=== PATIENT | male | born 2000 | race Caucasian/White ===

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

== ENCOUNTER 2023-04-06 19:28 | Emergency (ER) | payer OTHER, SELFPAY ==
[2023-04-06 19:35] VITALS: BP 142/77; PULSE 88; RESP 16; TEMP 36.8; O2SAT 100
--- NOTE | 2023-04-06 19:47 | ED.SKABFB ---
HPI - Skin/Abscess/Foreign Bdy General Chief complaint: Skin/Abscess/Foreign Body Stated complaint: Bump Lt Leg Time Seen by Provider: 04/06/23 19:40 Source: patient and RN notes reviewed Mode of arrival: ambulatory Limitations: no limitations History of Present Illness HPI narrative: Patient presents today complaining of redness, swelling, pain to the left nugent x3 hours. States he did have some poison beto test this like, but states has been improving. Denies any [id number] interventions prior to arrival. Related Data Allergies Allergy/AdvReac Type Severity Reaction Status Date / Time No Known Allergies Allergy Verified 04/06/23 19:29 Review of Systems Review of Systems: CONSTITUTIONAL: Denies body aches, fever, chills, or sweats. EYES: Denies visual changes, redness, or discharge. ENT: Denies rhinorrhea, congestion, sore throat, or otalgia. CARDIOVASCULAR: Denies chest pain, palpitations, or edema. RESPIRATORY: Denies cough or dyspnea. GASTROINTESTINAL: Denies abdominal pain, nausea, vomiting, or diarrhea. GENITOURINARY: Denies dysuria or hematuria. SKIN: + redness, swelling, pain to the left lower leg MUSCULOSKELETAL: Denies back pain, joint pain, or myalgia. NEUROLOGIC: Denies headache, numbness, tingling, or weakness. PSYCH: Denies depression or anxiety. [facility] Past Medical History Medical History Allergies Anxiety Surgical History Surgical History History of laparoscopic appendectomy 05/08/21 History of placement of ear tubes Family History Family History Mother Alcoholism Depression Anxiety Father Thyroid cancer Anxiety Depression Thyroid disease Sibling Anxiety Depression Grandparent Hypertension Anxiety Depression Social History Social History Smoking status: Never smoker Alcohol intake: never Substance use: never Living arrangements: with family Occupation/Education: student Gender identity (if verbalized by the patient): Male Comments At time of signature, I have reviewed and agree with nursing past medical, surgical, social and family history unless otherwise noted. Please see nursing chart for further information. There is no relevant family history pertinent to the presenting complaint Exam Narrative: GENERAL: Well-appearing, well-nourished, and in no acute distress. HEAD: Normocephalic, atraumatic. EYES: EOMI. No redness or drainage. Conjunctivae normal. ENT: Mucous membranes pink and moist. NECK: Normal AROM. CHEST: No respiratory distress. EXTREMITIES: Normal range of motion. No edema. SKIN: Warm, dry. Capillary refill normal. Normal skin turgor. 11 x 5 cm area of localized edema and erythema to the left nugent that is slightly tender to palpation. Multiple tiny pustules on the follicles. No fluctuance. Scant induration. NEURO: No focal deficits. Alert and oriented x3. Gait steady. PSYCH: Normal affect. No signs of depression or anxiety. Course Course Level of Care: Express Care Visit Vital Signs Vital signs: Vital Signs Temperature 98.3 F 04/06/23 19:35 Pulse Rate 88 04/06/23 19:35 Respiratory Rate 16 04/06/23 19:35 Blood Pressure 142/77 H 04/06/23 19:35 Pulse Oximetry 100 04/06/23 19:35 Oxygen Delivery Room Air 04/06/23 19:35 Temperature 98.3 F 04/06/23 19:35 Pulse Rate 88 04/06/23 19:35 Respiratory Rate 16 04/06/23 19:35 Blood Pressure 142/77 H 04/06/23 19:35 Pulse Oximetry 100 04/06/23 19:35 Oxygen Delivery Room Air 04/06/23 19:35 Reviewed. Pt has been instructed to follow up with his PCP regarding his elevated blood pressure today. MDM - Skin/Abscess/Foreign Bdy MDM Narrative Medical decision making narrative: Patient has folli
== END 2023-04-06 19:54 | disposition home or self-care (01) ==
PROVIDERS: Emergency Provider Nurse Practitioner
DX: L03.116 Cellulitis of left lower limb (principal); L73.9 Follicular disorder, unspecified
CPT/HCPCS: 99213; G0463

== ENCOUNTER 2025-08-21 11:17 | Emergency (ER) | payer OTHER, SELFPAY ==
--- OUTSIDE RECORDS SUMMARY | 2025-08-21 11:19 | XMS_ITS | Clinical Summary ---
Author Organization [facility] Address [address] [place] [id number] Care Team Providers Care Sample Wrapper Name Role Phone Cleo Alexandra DO Primary Care Provider + Jackson Reina MD Unavailable Tor Shah MD Unavailable [phone] Allergies No known active allergies Medications ibuprofen (ibuprofen) 200 mg tab/cap Take 400 mg by mouth every 6 (six) hours as needed for pain Active Active Problems Problem Noted Date Diagnosed Date Closed nondisplaced fracture of middle third of navicular bone of left wrist 03/02/2021 Overview (03/02/2021): Added automatically from request for surgery [id number] Surgical History Surgery Date Site/Laterality Comments EAR RECONSTRUCTION 08/26/2007 - 08/25/2008 [facility] Family History Medical History Relation Name Comments Thyroid cancer Father Anesthesia problems Neg Hx Relation Name Status Comments Father Social History Tobacco Use Types Packs/Day Years Used Date Smoking Tobacco: Never Smokeless Tobacco: Never AUDIT-C Answer Date Recorded Q1: How often do you have a drink containing alc ohol? 2-4 times a month 03/03/2021 Q2: How many drinks containi ng alcohol do you have on a typical day when you are drinking? 3 or 4 03/03/2021 Q3: How often do you have si x or more drinks on one occasion? Less than monthly 03/03/2021 Sex and Gender Information Value Date Recorded Sex Assigned at Not on file Legal Sex Male 9:45 AM CDT Gender Identity Not on file Sexual Orientation Not on file Last Filed Vital Signs Vital Sign Reading Time Taken Comments Blood Pressure 124/73 03/08/2021 12:45 PM CDT Pulse 86 03/08/2021 12:45 PM CDT Temperature 36.3 C (97.3 F) 03/08/2021 12:34 PM CDT Respiratory Rate 15 03/08/2021 12:45 PM CDT Oxygen Saturation 96% 03/08/2021 12:45 PM CDT Inhaled Oxygen Concentration - - Weight 73.1 kg (161 lb 3.2 oz) 03/08/2021 8:55 A M CDT Height 190.5 cm (6' 3) 03/08/2021 8:55 AM CDT Body Mass Index 20.15 03/08/2021 8:55 AM CDT Plan of Treatment Not on file Medical Devices Implanted Type Area Pt Sitter Device Identifier Shelf Expiration Date Model / Serial / Lot [employer] [id number]-M22-[id number] Acutrak 2 3.5-3.6mm 22mm Self Cut Cannulated Variable Pitch - [id number] Implanted:Qty: 1 on 03/08/2021 by Tor Shah MD at [facility] Left: Wrist [employer] [id number] 05/20/2027 [id number]-[id number] / / [id number] Insurance [facility] CHOICE PLUS [facility] HMO/PPO Address: [facility] [address] [place] [address] Advance Directives For more information, please contact: [phone] * Full Code (Latest Code Status on File) Date Activated Date Inactivated Comments 03/08/2021 12:09 PM 03/08/2021 5:06 PM Care Teams Sample Wrapper Relationship Specialty Start Date End Date Cleo Alexandra DO [address] [place] [id number] PCP - General Family Medicine 02/14/21 Jackson Reina MD [address] [place] [id number] Referring Physician Orthopedic Surgery 02/14/21 Tor Shah MD [address] [place] [id number] Surgeon Orthopedic Surgery 03/08/21
--- OUTSIDE RECORDS SUMMARY | 2025-08-21 11:19 | XMS_ITS | Clinical Summary ---
Author Organization [facility] Address [address] [place] [address] Care Team Providers Care Agricultural Loan Officer Name Role Phone Jyothi Porras MD Unavailable Source Comments [facility],non-owned Affiliates and Associated Physician Practices is amultiple site organization consisting of ambulatory clinics and hospital sitesin [place], [place], [place] and [place]. This disclosure is being madepursuant to the Care Everywhere program and may not contain all information available regarding this patient. Last updated 18.[facility] Allergies No known active allergies Medications * Be aware that medications may not be up to date on this document. Alwaysverify current medications with the patient. albuterol HFA (PROVENTIL;VENT YNES;PROAIR) 108 (90 BASE) MCG/ACT inhaler Inhale 2 Puffs by mouth every 4 hours as needed for Wheezing or Cough OK TO SUBSTITUTE ANY BRAND. 1 Inhaler 7 Active Spacer/Aero-Hol ding Chambers (AEROCHAMBER) Inhale by mouth as directed 1 Each 1 7 Active Active Problems Problem Noted Date Diagnosed Date Exercise-induced asthma 02/06/2017 Allergic rhinitis 12/14/2010 Resolved Problems Problem Noted Date Diagnosed Date Resolved Date Allergic conjunctivitis 12/14/201003/26 Asthma, intermittent 12/14/2010 015 Immunizations Immunization Administration Dates Next Due DTaP VACCINE IM (6wk-6yrs) 12/09/2007,,03/18/2003, 3,2002 HEP A PEDS 2 DOSE 01/28/2014,12/09/2007 HEP B VACCINE, PED/ADOL 06/18/2003,2002, HIB BOOSTER 03/20/2004, 3,01/05/2003, 3 MENINGOCOCCAL ACWY (MCV4P) VAC IM 01/28/2014 MMR 12/09/2007,09/07/2003 PNEUMOCOCCAL CONJ, PEDS 09/07/2003,03/18,01/05/2003, 3 POLIO IPV 12/09/2007, 4,01/05/2003, 3 PPD 09/07/2003 TDAP (7yrs+) 01/28/2014 VARICELLA 12/09/2007,12/07/2003 Family History Medical History Relation Name Comments Allergies Brother Asthma Brother Cancer Father Thyroid Thyroid Disease Father Cancer Mother Basal Cell Migraine Mother Rashes/Skin Problems Mother Heart Disease Paternal Grandfather Hypertension Paternal Grandfather Relation Name Status Comments Brother Father Mother Paternal Grandfather Social History Tobacco Use Types Packs/Day Years Used Date Smoking Tobacco: Never Assessed Sex and Gender Information Value Date Recorded Sex Assigned at Not on file Legal 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 Gender Identity Not on file Sexual Orientation Not on file Last Filed Vital Signs Vital Sign Reading Time Taken Comments Blood Pressure 108/62 03/06/2016 1:07 PM CDT Pulse 84 03/06/2016 1:07 PM CDT Temperature 36.9 C (98.5 F) 02/06/2017 9:50 AM CDT Respiratory Rate - - Oxygen Saturation - - Inhaled Oxygen Concentration - - Weight 59.2 kg (130 lb 9.6 oz) 02/06/2017 9:50 A M CDT Height 181 cm (5' 11.25) 02/06/2017 9:50 AM CDT Body Mass Index 18.09 02/06/2017 9:50 AM CDT Plan of Treatment Health Maintenance Due Date Last Done Comments HIV SCREENING 2017 HPV VACCINE (1 - Male 3-dose series) 2017 MENINGOCOCCAL (Group B) VACCINE SHARED DECISION-MAKING (1 of 2 - Standard) 2018 HEPATITIS C SCREENING 08/29/2020 DTAP/TDAP/TD VACCINES (7 - Td or Tdap) 01/29/2024 01/28/2014, 12/09/2007, 03/20/2004, Additional history exists DEPRESSION SCREENING 08/26/2024 COVID-19 VACCINE (1 - season) 2025 INFLUENZA VACCINE (#1) 2025 ZOSTER VACCINE (1 of 2) 2052 HEPATITIS B VACCINE Completed 06/18/2003, 2002, 2002 PNEUMOCOCCAL VACCINE Completed 09/07/2003, 03/18/2003, 01/05/2003, Additional history exists HIB VACCINE Completed 03/20/2004, 02/24, 01/05/2003, Additional history exists MENINGOCOCCAL GROUPS A/C/Y/W VACCINE Aged Out 01/28/2014 No longer eligible based on patient's age to complete this topic Goals Goal Patient Goal Type Associated Problems Recent Progress Patient-Stated? Author Use safety retraint in car Lifestyle On track( 016 11:01 AM CDT) No Irma Mayer RN Insurance [facility] [facility] [place] [id number] [facility] [place] [place] Address[facility] [address] [place] [address] [place] [id number] Care Teams Agricultural Loan Officer Relationship Specialty Start Date End Date Jyothi Porras MD PCP - Pediatrics 09/13/09
[2025-08-21 11:37] VITALS: BP 134/68; PULSE 104; RESP 18; TEMP 38.4; O2SAT 99
--- NOTE | 2025-08-21 11:52 | ED_ITS ---
HPI - General Adult General Chief complaint: Upper Respiratory Infection Stated complaint: Fever Time Seen by Provider: 08/21/25 11:52 Source: patient Mode of arrival: ambulatory Limitations: no limitations History of Present Illness HPI narrative: 24-year-old male patient presents to [facility] with complaints of cold symptoms that started suddenly last night while sleeping. Patient states he started getting a fever as high as 102, body aches, chills, congestion and just overall not feeling well. Patient states he did not receive a flu vaccine this season. Related Data Allergies Allergy/AdvReac Type Severity Reaction Status Date / Time No Known Allergies Allergy Verified 08/21/25 11:52 Review of Systems Review of Systems: CONSTITUTIONAL: Positive fever, chills, or sweats. positive 15 EYES: Denies visual changes, redness, or discharge. ENT: positive rhinorrhea, congestion, denies sore throat, or otalgia. CARDIOVASCULAR: Denies chest pain, palpitations, or edema. RESPIRATORY: Denies cough or dyspnea. GASTROINTESTINAL: Denies abdominal pain, nausea, vomiting, or diarrhea. GENITOURINARY: Denies dysuria or hematuria. SKIN: Denies rash or itching. MUSCULOSKELETAL: Denies back pain, joint pain, or myalgia. NEUROLOGIC: Denies headache, numbness, or weakness. PSYCHIATRIC: Denies anxiety or depression. FORMERLY [facility], [facility] Past Medical History Medical History Anxiety Allergies Surgical History Surgical History History of laparoscopic appendectomy 05/08/21 History of placement of ear tubes Family History Family History Mother Alcoholism Depression Anxiety Father Thyroid cancer Anxiety Depression Thyroid disease Sibling Anxiety Depression Grandparent Hypertension Anxiety Depression Social History Social History Smoking status: Never smoker Alcohol intake: never Substance use: never Living arrangements: with family Occupation/Education: student Gender identity (if verbalized by the patient): Male Comments At the time of my signature I agree with nursing past medical history, surgical, social, and family history. There is no relevant family history pertinent to the presenting complaint. Exam Narrative: GENERAL: Well-appearing, well-nourished, and in no acute distress. HEAD: Normocephalic, atraumatic. EYES: PERRLA and EOMI. ENT: Nares with erythema edema noted bilaterally, no rhinorrhea or epistaxis. Mucous membranes moist. posterior pharynx with some postnasal drip no tonsillar enlargement no exudates or lesions present. Bilateral TMs are clear no erythema foreign bodies the canal. NECK: Supple. No lymphadenopathy CHEST: Clear to auscultation. No respiratory distress. HEART: Regular rate and rhythm. No murmur heard. Normal peripheral pulses. ABDOMEN: Soft, nontender, nondistended, normal active bowel sounds. EXTREMITIES: Normal range of motion. No edema. SKIN: Warm, dry, no rash. NEURO: No focal deficits. Alert and oriented x3. Course Course Level of Care: Express Care Visit Vital Signs Vital signs: Vital Signs Temperature 38.4 C H 08/21/25 11:37 Pulse Rate 104 H 08/21/25 11:37 Respiratory Rate 18 08/21/25 11:37 Blood Pressure 134/68 08/21/25 11:37 Pulse Oximetry 99 08/21/25 11:37 Oxygen Delivery Room Air 08/21/25 11:37 Temperature 38.4 C H 08/21/25 11:37 Pulse Rate 104 H 08/21/25 11:37 Respiratory Rate 18 08/21/25 11:37 Blood Pressure 134/68 08/21/25 11:37 Pulse Oximetry 99 08/21/25 11:37 Oxygen Delivery Room Air 08/21/25 11:37 Vital signs reviewed. MDM MDM Narrative Medical decision making narrative: Notify patient that his point of care testing was positive today for influenza A. Discussed with patient and gave wrist risks benefits on Tamiflu to help with the influenza. Patient has opted not to do Tamiflu today. Discussed with him he can also take some high-dose vitamin-C, vitamin-D and zinc to help decrease the virus duration. Discussed with patient if he starts having chest pain or shortness of breath I highly recommend that he go to the ER for further nery luation his fevers last longer than 5 days he needs to see his primary doctor for blood work other than that he can treat his symptoms with [id number] medications and get lots of rest and lots of fluid. Patient verbalized understanding and agrees plan of care at this time. Differential Diagnosis Differential Diagnosis: Differential diagnosis: Allergic rhinitis, chronic sinusitis, tonsillitis, acute sinusitis, infectious mononucleosis, seasonal influenza, pertussis, diphtheria, meningococcal disease, viral syndrome, viral bronchitis, RSV, COVID- 19 Critical Care Time Critical Care Time Critical Care Time: No Discharge Plan Discharge Clinical Impression: Influenza A Patient Disposition: Home Condition: Stable Instructions: Antibiotic Form, Influenza (ED) Additional Instructions: Influenza (the flu) is an infection caused by the influenza virus. The flu is easily spread when an infected person coughs, sneezes, or has close contact with others. You may be able to spread the flu to others for 1 week or longer after signs or symptoms appear. DISCHARGE INSTRUCTIONS: Call your local emergency number (911 in the [place]) if: You have trouble breathing, and your lips look purple or blue. You have a seizure. Call your doctor if: You are dizzy, or you are urinating less or not at all. You have a headache with a stiff neck, and you feel tired or confused. You have new pain or pressure in your chest. Your symptoms, such as shortness of breath, vomiting, or diarrhea, get worse. Your symptoms, such as fever and coughing, seem to get better, but then get worse. You have new muscle pain or weakness. You have questions or concerns about your condition or care. Medicines: You may need any of the following: Acetaminophen decreases pain and fever. It is available without a doctor's order. Ask how much to take and how often to take it. Follow directions. Read the labels of all other medicines you are using to see if they also contain acetaminophen, or ask your doctor or pharmacist. Acetaminophen can cause liver damage if not taken correctly. Do not use more than 4 grams (4,000 milligrams) total of acetaminophen in one day. NSAIDs , such as ibuprofen, help decrease swelling, pain, and fever. This medicine is available with or without a doctor's order. NSAIDs can cause stomach bleeding or kidney problems in certain people. If you take blood thinner medicine, always ask your healthcare provider if NSAIDs are safe for you. Always read the medicine label and follow directions. Rest as much as you can to help you recover. Patient Language: Guamanian Prescriptions: No Action cephalexin 500 mg capsule 500 mg PO Q6H 7 Days Qty: 28 0RF mupirocin 2 % ointment 1 applic topical BID 7 Days Qty: 22 0RF Follow-up/Referrals: PHYSICIAN,DITCHING MACHINE OPERATING ENGINEER [Primary Care Provider, Internal Medicine] Time of Disposition: 11:58
[2025-08-21 12:18] LABS: EDCOVIDSCREEN Negative (Negative); EDINFLUASCREEN Positive (Negative); EDINFLUBSCREEN Negative (Negative); EDSTREPNEGPOS1 Negative (Negative)
== END 2025-08-21 12:00 | disposition home or self-care (01) ==
PROVIDERS: Emergency Provider Nurse Practitioner Family
DX: J10.1 Influenza due to other identified influenza virus with other respiratory manifestations (principal)
CPT/HCPCS: 87081; 87426; 87804; 87880; 99213; G0463